=== PATIENT | male | born 1995 | race Hispanic/Latino ===

== ENCOUNTER 2022-05-26 14:14 | Emergency (ER) | payer OTHER ==
[2022-05-26] VITALS (8 sets, daily range): BP systolic 115–128; BP diastolic 68–83
== END 2022-05-26 16:00 | DRG 556 ==
LOC: EDBD 14:14 → ED 14:14
DX: M25.512 Pain in left shoulder (principal); M25.571 Pain in right ankle and joints of right foot; S00.81XA Abrasion of other part of head, initial encounter; F41.9 Anxiety disorder, unspecified; F32.A Depression, unspecified; B35.1 Tinea unguium; Y35.893A Legal intervention involving other specified means, suspect injured, initial encounter